=== PATIENT | male | born 1985 | race Caucasian/White ===

== ENCOUNTER 2018-06-26 18:43 | Emergency (ER) | payer OTHER, MEDICAID, SELFPAY ==
[2018-06-26 18:50] VITALS: BP 147/96; PULSE 99; RESP 18; TEMP 36.4; O2SAT 100; BMI 29.5
--- NOTE | 2018-06-26 19:06 | DI.CT.S_ITS ---
PROCEDURE: CT ABDOMEN PELVIS W CON INDICATIONS: severe RLQ pain, rebound, nausea, vomiting, and diaphoresis. TECHNIQUE: After the administration of intravenous contrast, 5 mm thick sections acquired from the diaphragms to the symphysis. 5 mm thick coronal and sagittal reformats were performed. For radiation dose reduction, the following was used: automated exposure control, adjustment of mA and/or kV according to patient size. COMPARISON: None. FINDINGS: Image quality: There is motion artifact limiting evaluation. ABDOMEN: Lung bases: Lung bases are clear. Heart size is normal. Solid organs: Limited evaluation of the liver demonstrates no definite mass lesions. Gallbladder is nondistended. Biliary system is non-dilated. Pancreas enhances normally. Spleen is normal in size and enhancement. No adrenal nodules. There is a small urinary stone in the bladder at the ureterovesical junction measuring 3-4 mm. There is minimal right hydroureteronephrosis. There is mild asymmetrically delayed enhancement of the right kidney. A possible punctate nonobstructing stone is also noted in the right kidney. Peritoneum and bowel: Stomach and small bowel loops are normal in caliber and wall thickness. No evidence of appendicitis. There is mild segmental wall thickening in the sigmoid colon compatible with a mild colitis or nondistention. No free fluid or air. Nodes and vessels: No retroperitoneal or mesenteric adenopathy. Aorta and inferior vena cava are normal in caliber. Miscellaneous: No ventral hernias. PELVIS: Genitourinary: Bladder wall thickness is normal. Miscellaneous: No inguinal hernias or adenopathy. Bones: No suspicious bony lesions. No vertebral body compression fractures. IMPRESSION: 1. Small urinary stone in the bladder at the UVJ compatible with a recently passed stone. There is associated minimal right hydroureteronephrosis and slightly delayed right renal enhancement. 2. No evidence of appendicitis. 3. Mild segmental wall thickening in the sigmoid colon may represent a mild colitis or nondistention. Dictated by: Jonathan Avila M.D. on 06/26/2018 at 19:40 Approved by: Jonathan Avila M.D. on 06/26/2018 at 19:45
--- NOTE | 2018-06-26 19:20 | ED.ABDPAIN ---
HPI - Abdominal Pain General Chief Complaint: Abdominal Pain Stated Complaint: lower right side abdominal pain Time Seen by Provider: 06/26/18 18:51 Source: patient and family Mode of arrival: ambulatory Limitations: no limitations History of Present Illness HPI narrative: 33-year-old daily smoker presents with sudden-onset severe right lower quadrant pain over the course of the day. The patient states he has had a few episodes of nausea and vomiting. His pain has minimal provocation or palliation and he denies any radiation. He has had no fever or chills. He denies any dysuria, frequency or urgency. He denies any trouble with bowel movements. He denies any history of same MD complaint: abdominal pain Onset (ago): hour(s) Pain Consistency: constant Location: RLQ Severity: moderate Quality: stabbing and sharp Radiation: none Migration to: no migration Relieving factors: nothing Exacerbating factors: nothing Associated symptoms: nausea Related Data Previous Rx's Medication Instructions Recorded hydrocodone-acetaminophen 1 tab PO Q4-6H PRN #14 tab 06/26/18 ketorolac 10 mg PO Q6H PRN #14 tab 06/26/18 ondansetron 4 mg PO TID-QID PRN #10 tab 06/26/18 Review of Systems Review of Systems All systems reviewed & are unremarkable except as noted in HPI and below Constitutional Denies chills, Denies fever(s), Denies lethargy and Denies weakness Eyes Denies change in vision, Denies eye discharge, Denies irritation and Denies loss of vision ENT Ears, Nose, Mouth, and Throat: Denies change in voice, Denies neck pain and Denies sore throat Cardiovascular Denies chest pain, Denies irregular heart rhythm, Denies lightheadedness, Denies palpitations, Denies dyspnea, Denies dyspnea on exertion and Denies orthopnea Respiratory Denies cough, Denies dyspnea, Denies dyspnea on exertion and Denies wheezing Gastrointestinal Gastrointestinal: Reports abdominal pain, Denies change in bowel habits, Denies diarrhea, Denies nausea and Denies vomiting Genitourinary Denies hematuria, Denies flank pain, Denies urinary incontinence and Denies urinary urgency Musculoskeletal Denies neck pain Integumentary/Breasts Denies pruritus, Denies erythema, Denies rash and Denies wounds Neurologic Denies confusion, Denies loss of vision and Denies weakness Psychiatric Denies anxiety, Denies confusion, Denies depression, Denies homicidal ideation and Denies suicidal ideation Endocrine Denies palpitations Hematologic/Lymphatic Denies easy bruising Allergic/Immunologic Denies wheezing [facility] Social History Smoking Status: Current every day smoker Exam Narrative Exam Narrative: 33-year-old male obviously in significant pain, clutching his right lower abdomen Initial Vital Signs Initial Vital Signs: Vital Signs Temperature 97.5 F L 06/26/18 18:50 Pulse Rate 99 H 06/26/18 18:50 Respiratory Rate 18 06/26/18 18:50 Blood Pressure 147/96 H 06/26/18 18:50 Pulse Oximetry 100 06/26/18 18:50 Const General: cooperative, well developed and acute distress Nutritional Appearance: well nourished Orientation: alert, awake, oriented x3 and not confused HENMT Head: normal to inspection Ears: hearing grossly normal bilaterally Nose: external nose normal Mouth: oral mucosae normal Eyes General: appearance normal, both eyes and all related structures Eyelids: eyelids normal Conjunctivae: conjunctivae normal Sclera: sclerae normal Pupils: PERRL EOM: EOM intact bilaterally Neck Neck: normal visual inspection, trachea midline, No lymphadenopathy, No midline deformity and No JVD Lymphatic: No lymphedema Resp Effort & Inspection: normal respiratory effort, able to speak in complete sentences, no respiratory distress and no use of accessory muscles Auscultation: clear to auscultation bilaterally, no rales, no rhonchi and no wheezes Cardio Rate: regular rate Rhythm: regular rhythm Heart Sounds: no click, no gallops, no murmurs and no rubs Pulses: normal peripheral pulses GI Inspection: non-distended Palpation: soft, no hepatosplenomegaly, No guarding, No pulsatile mass and tender Auscultation: normal bowel sounds Meatus: meatus normal Scrotum: scrotum normal Testes: normal Back/Spine/Pelvis Back: No CVA tenderness Cervical Spine: cervical ROM normal and No pain with cervical ROM Thoracic/Lumbar Spine: thoracic and lumbar spine normal to inspection Skin General: no rashes or lesions noted, No jaundice and No petechiae Neuro General: alert, awake and oriented x3 Course Orders Ordered: ED Orders 06/26/18 19:00 Complete Blood Count AUTO DIFF Stat Comprehensive Metabolic Panel Stat Lipase Stat 06/26/18 19:06 CT abdomen pelvis w con Stat 06/26/18 20:03 Kidney Stone Analysis [Stone Analysis] Stat Discontinued Medications Hydromorphone HCl (Dilaudid) 1 mg IV Q15M MAGGI Stop: 06/26/18 19:31 Last Admin: 06/26/18 19:25 Dose: 1 mg Sodium Chloride (Normal Saline 0.9%) 1,000 mls @ 1,000 mls/hr IV BOLUS ONE Stop: 06/26/18 20:04 Last Infusion: 06/26/18 20:10 Dose: 0 mls/hr Admin: 06/26/18 19:25 Dose: 1,000 mls/hr Ketorolac Tromethamine (Toradol) 15 mg IV NOW ONE Stop: 06/26/18 19:23 Last Admin: 06/26/18 19:32 Dose: 15 mg Ondansetron HCl (Zofran) 4 mg IV NOW ONE Stop: 06/26/18 19:06 Last Admin: 06/26/18 19:25 Dose: 4 mg Reevaluation(s) Reevaluation #1: Patient with near complete resolution of symptoms after above-stated therapies. When he produced a urine sample there was very clearly a kidney stone noted which has been obtained and sent to the lab for analysis Vital Signs - 8 hr 06/26/18 18:50 06/26/18 19:51 06/26/18 20:11 Temperature 97.5 F L Pulse Rate 99 H 91 H 87 Respiratory Rate 18 20 21 Blood Pressure 147/96 H 139/87 Blood Pressure [Left Arm] 142/82 H Pulse Oximetry 100 100 100 MDM - Abdominal Pain Differential Diagnosis Differential diagnosis: Likely abdominal pain, acute appendicitis, calculus of kidney and constipation Medical Records Attestation: I reviewed the patient's medical records. Lab Data Attestation: I reviewed the patient's lab results. Result diagrams: 06/26/18 19:00 06/26/18 19:00 Lab Results 06/26/18 06/26/18 Range/Units 19:00 19:00 WBC 14.1 H (4.5-11.0) X10^3/uL RBC 5.17 (4.5-5.9) X10^6/uL Hgb 15.3 (13.5-17.5) g/dL Hct 45.0 (41-53) % MCV 87.1 (80-100) fL MCH 29.6 (26-34) PG MCHC 34.0 (30-36) % RDW 13.0 (11.6-14.8) % Plt Count 361 (150-400) X10^3/uL Neut % (Auto) 49.5 L (50-75) % Lymph % (Auto) 39.3 (25-40) % Hart % (Auto) 7.4 (3-14) % Eos % (Auto) 3.1 (2-4) % Baso % (Auto) 0.7 (0-2) % Neut # (Auto) 7000 H (0451-6011) /uL Sodium 141 (137-145) mmol/L Potassium 3.5 (3.4-5.1) mmol/L Chloride 102 (98-107) mmol/L Carbon Dioxide 26 (22-32) mmol/L BUN 14 (9-20) mg/dL Creatinine 0.90 (0.66-1.25) mg/dL Estimated GFR > 60.0 (>60) mL/min BUN/Creatinine Ratio 15.6 (6-22) Glucose 124 H (70-100) mg/dL Calcium 9.7 (8.4-10.2) mg/dL Total Bilirubin 0.3 (0.2-1.3) mg/dL AST 28 (17-59) IU/L ALT 52 (21-72) IU/L Alkaline Phosphatase 84 (38-126) U/L Total Protein 8.1 (6.3-8.2) g/dL Albumin 4.8 (3.5-5.0) g/dL Globulin 3.3 (1.7-4.1) g/dL Albumin/Globulin Ratio 1.5 (1.0-2.8) Lipase 113 (23-300) U/L Point of care testing: Urine Dip Bedside Urine Glucose Negative Bedside Urine Bilirubin - Negative Bedside Urine Ketone - Negative Urine Specific [place] 1.020 Bedside Urine Occult Blood +/- Bedside Urine pH 6.5 Bedside Urine Protein - Negative Bedside Urine Urobilinogen - Negative Bedside Urine Nitrite - Negative Bedside Urine Leukocytes - Negative Esterase Imaging Data CT scan - abdomen: Radiologist's impression: [address] [address] [address] Scan Report Signed Patient: Sandoval Mixon [facility]#: [id number] : 1985Acct:[id number] Age/Sex: 33 / MDate of Service: 06/26/18 Loc: ED Accession Number: [id number] Procedure: CT abdomen pelvis w con Ordering Provider: Jose Raul Urias D.O. PROCEDURE: CT ABDOMEN PELVIS W CON INDICATIONS: severe RLQ pain, rebound, nausea, vomiting, and diaphoresis. TECHNIQUE: After the administration of intravenous contrast, 5 mm thick sections acquired from the diaphragms to the symphysis. 5 mm thick coronal and sagittal reformats were performed. For radiation dose reduction, the following was used: automated exposure control, adjustment of mA and/or kV according to patient size. COMPARISON: None. FINDINGS: Image quality: There is motion artifact limiting evaluation. ABDOMEN: Lung bases: Lung bases are clear. Heart size is normal. Solid organs: Limited evaluation of the liver demonstrates no definite mass lesions. Gallbladder is nondistended. Biliary system is non-dilated. Pancreas enhances normally. Spleen is normal in size and enhancement. No adrenal nodules. There is a small urinary stone in the bladder at the ureterovesical junction measuring 3-4 mm. There is minimal right hydroureteronephrosis. There is mild asymmetrically delayed enhancement of the right kidney. A possible punctate nonobstructing stone is also noted in the right kidney. Peritoneum and bowel: Stomach and small bowel loops are normal in caliber and wall thickness. No evidence of appendicitis. There is mild segmental wall thickening in the sigmoid colon compatible with a mild colitis or nondistention. No free fluid or air. Nodes and vessels: No retroperitoneal or mesenteric adenopathy. Aorta and inferior vena cava are normal in caliber. Miscellaneous: No ventral hernias. PELVIS: Genitourinary: Bladder wall thickness is normal. Miscellaneous: No inguinal hernias or adenopathy. Bones: No suspicious bony lesions. No vertebral body compression fractures. IMPRESSION: 1. Small urinary stone in the bladder at the UVJ compatible with a recently passed stone. There is associated minimal right hydroureteronephrosis and slightly delayed right renal enhancement. 2. No evidence of appendicitis. 3. Mild segmental wall thickening in the sigmoid colon may represent a mild colitis or nondistention. Dictated by: Jonathan Avila M.D. on 06/26/2018 at 19:40 Approved by: Jonathan Avila M.D. on 06/26/2018 at 19:45 [facility] Narrative Medical decision making narrative: 33-year-old male presents with severe right lower quadrant pain in the absence of fever, chills or provocation. CT notes a stone at the right UVJ which has been obtained and sent for analysis. Labs are unremarkable. No infectious findings in the urine. Appendicitis, bowel obstruction and diverticulitis considered but given CT findings are thought much less likely. Discharge Plan Departure Patient Disposition: Home Clinical Impression: Kidney stones Discharge Date/Time: 06/26/18 20:13 Interventions: ED Discharge Assessment Last Done: 06/26/18 20:11 Instructions: DI for Kidney Stones Activity Restrictions/Additional Instructions: *You have been diagnosed with [ passed kidney stone ] *What to do: *Take medications as directed *Follow up with your primary care provider in 2-3 days, call for an appointment. Let them know you were seen in the Emergency Department and that we ask that you be seen in follow up. Additionally I have provided contact information for Urology at [facility] *Return to ER if you should have any new, worsening or concerning symptoms, such as [ worsening pain, fever, shaking chills, other bothersome symptoms] Prescriptions: New hydrocodone-acetaminophen 5-325 mg tablet 1 tab PO Q4-6H PRN (Reason: pain) Qty: 14 RF: 0 ketorolac 10 mg tablet 10 mg PO Q6H PRN (Reason: pain) Qty: 14 RF: 0 ondansetron 4 mg tablet,disintegrating 4 mg PO TID-QID PRN (Reason: nausea and vomiting) Qty: 10 RF: 0 Referrals: Kevin Garber MD [Non-Staff] -
[2018-06-26 19:25] LABS: Add Manual Diff / Slide Review NO; Basophils Percent Auto 0.7 % (0-2); Eosinophils Percent Auto 3.1 % (2-4); Hemoglobin 15.3 g/dL (13.5-17.5); Lymphocytes Percent Auto 39.3 % (25-40); Mean Corpuscular Hemoglobin 29.6 PG (26-34); Mean Corpuscular Volume 87.1 fL (80-100); Monocytes Percent Auto 7.4 % (3-14); Neutrophils Absolute Auto 7000 /uL (3000-5900); Neutrophils Percent Auto 49.5 % (50-75); Platelet Count 361 X10^3/uL (150-400); Red Blood Cell Count 5.17 X10^6/uL (4.5-5.9); White Blood Cell Count 14.1 X10^3/uL (4.5-11.0)
[2018-06-26] MEDS: ONDANSETRON 4 MG/2 ML INJ IV (19:25)
[2018-06-26] MEDS: SODIUM CHLORIDE 0.9% 1,000 ML 1000 ML IV (19:25)
[2018-06-26] MEDS: HYDROMORPHONE 1 MG INJ IV (19:25)
[2018-06-26 19:30] LABS: Alanine Aminotransferase 52 IU/L (21-72); Albumin 4.8 g/dL (3.5-5.0); Albumin Globulin Ratio 1.5 (1.0-2.8); Alkaline Phosphatase 84 U/L (38-126); Aspartate Aminotransferase 28 IU/L (17-59); BUN Creatinine Ratio 15.6 (6-22); Bilirubin Total 0.3 mg/dL (0.2-1.3); Blood Urea Nitrogen 14 mg/dL (9-20); Calcium 9.7 mg/dL (8.4-10.2); Carbon Dioxide 26 mmol/L (22-32); Chloride 102 mmol/L (98-107); Estimated Glomerular Filt Rate > 60.0 mL/min (>60); Globulin 3.3 g/dL (1.7-4.1); Glucose 124 mg/dL (70-100); HEMOLYSIS < 15 (0-50); Lipase 113 U/L (23-300); Potassium 3.5 mmol/L (3.4-5.1); Sodium 141 mmol/L (137-145); Total Protein 8.1 g/dL (6.3-8.2)
[2018-06-26] MEDS: KETOROLAC 60 MG/2 ML VIAL 15 MG IV (19:32)
[2018-06-26 19:51] VITALS: BP 142/82; PULSE 91; RESP 20; O2SAT 100
--- NOTE | 2018-06-26 19:53 | PC.NURSE ---
Pt provided a urinal, voided 200ml. small dark 2-3mm stone strained from urine.
[2018-06-26 20:11] VITALS: BP 139/87; PULSE 87; RESP 21; O2SAT 100
--- NOTE | 2018-06-26 21:41 | ED_ITS ---
HPI - Abdominal Pain General Chief Complaint: Abdominal Pain Stated Complaint: lower right side abdominal pain Time Seen by Provider: 06/26/18 18:51 Source: patient and family Mode of arrival: ambulatory Limitations: no limitations History of Present Illness HPI narrative: 33-year-old daily smoker presents with sudden-onset severe right lower quadrant pain over the course of the day. The patient states he has had a few episodes of nausea and vomiting. His pain has minimal provocation or palliation and he denies any radiation. He has had no fever or chills. He denies any dysuria, frequency or urgency. He denies any trouble with bowel movements. He denies any history of same MD complaint: abdominal pain Onset (ago): hour(s) Pain Consistency: constant Location: RLQ Severity: moderate Quality: stabbing and sharp Radiation: none Migration to: no migration Relieving factors: nothing Exacerbating factors: nothing Associated symptoms: nausea Related Data Previous Rx's Medication Instructions Recorded hydrocodone-acetaminophen 1 tab PO Q4-6H PRN #14 tab 06/26/18 ketorolac 10 mg PO Q6H PRN #14 tab 06/26/18 ondansetron 4 mg PO TID-QID PRN #10 tab 06/26/18 Review of Systems Review of Systems All systems reviewed & are unremarkable except as noted in HPI and below Constitutional Denies chills, Denies fever(s), Denies lethargy and Denies weakness Eyes Denies change in vision, Denies eye discharge, Denies irritation and Denies loss of vision ENT Ears, Nose, Mouth, and Throat: Denies change in voice, Denies neck pain and Denies sore throat Cardiovascular Denies chest pain, Denies irregular heart rhythm, Denies lightheadedness, Denies palpitations, Denies dyspnea, Denies dyspnea on exertion and Denies orthopnea Respiratory Denies cough, Denies dyspnea, Denies dyspnea on exertion and Denies wheezing Gastrointestinal Gastrointestinal: Reports abdominal pain, Denies change in bowel habits, Denies diarrhea, Denies nausea and Denies vomiting Genitourinary Denies hematuria, Denies flank pain, Denies urinary incontinence and Denies urinary urgency Musculoskeletal Denies neck pain Integumentary/Breasts Denies pruritus, Denies erythema, Denies rash and Denies wounds Neurologic Denies confusion, Denies loss of vision and Denies weakness Psychiatric Denies anxiety, Denies confusion, Denies depression, Denies homicidal ideation and Denies suicidal ideation Endocrine Denies palpitations Hematologic/Lymphatic Denies easy bruising Allergic/Immunologic Denies wheezing [facility] Social History Smoking Status: Current every day smoker Exam Narrative Exam Narrative: 33-year-old male obviously in significant pain, clutching his right lower abdomen Initial Vital Signs Initial Vital Signs: Vital Signs Temperature 97.5 F L 06/26/18 18:50 Pulse Rate 99 H 06/26/18 18:50 Respiratory Rate 18 06/26/18 18:50 Blood Pressure 147/96 H 06/26/18 18:50 Pulse Oximetry 100 06/26/18 18:50 Const General: cooperative, well developed and acute distress Nutritional Appearance: well nourished Orientation: alert, awake, oriented x3 and not confused HENMT Head: normal to inspection Ears: hearing grossly normal bilaterally Nose: external nose normal Mouth: oral mucosae normal Eyes General: appearance normal, both eyes and all related structures Eyelids: eyelids normal Conjunctivae: conjunctivae normal Sclera: sclerae normal Pupils: PERRL EOM: EOM intact bilaterally Neck Neck: normal visual inspection, trachea midline, No lymphadenopathy, No midline deformity and No JVD Lymphatic: No lymphedema Resp Effort & Inspection: normal respiratory effort, able to speak in complete sentences, no respiratory distress and no use of accessory muscles Auscultation: clear to auscultation bilaterally, no rales, no rhonchi and no wheezes Cardio Rate: regular rate Rhythm: regular rhythm Heart Sounds: no click, no gallops, no murmurs and no rubs Pulses: normal peripheral pulses GI Inspection: non-distended Palpation: soft, no hepatosplenomegaly, No guarding, No pulsatile mass and tender Auscultation: normal bowel sounds Meatus: meatus normal Scrotum: scrotum normal Testes: normal Back/Spine/Pelvis Back: No CVA tenderness Cervical Spine: cervical ROM normal and No pain with cervical ROM Thoracic/Lumbar Spine: thoracic and lumbar spine normal to inspection Skin General: no rashes or lesions noted, No jaundice and No petechiae Neuro General: alert, awake and oriented x3 Course Orders Ordered: ED Orders 06/26/18 19:00 Complete Blood Count AUTO DIFF Stat Comprehensive Metabolic Panel Stat Lipase Stat 06/26/18 19:06 CT abdomen pelvis w con Stat 06/26/18 20:03 Kidney Stone Analysis [Stone Analysis] Stat Discontinued Medications Hydromorphone HCl (Dilaudid) 1 mg IV Q15M MAGGI Stop: 06/26/18 19:31 Last Admin: 06/26/18 19:25 Dose: 1 mg Sodium Chloride (Normal Saline 0.9%) 1,000 mls @ 1,000 mls/hr IV BOLUS ONE Stop: 06/26/18 20:04 Last Infusion: 06/26/18 20:10 Dose: 0 mls/hr Admin: 06/26/18 19:25 Dose: 1,000 mls/hr Ketorolac Tromethamine (Toradol) 15 mg IV NOW ONE Stop: 06/26/18 19:23 Last Admin: 06/26/18 19:32 Dose: 15 mg Ondansetron HCl (Zofran) 4 mg IV NOW ONE Stop: 06/26/18 19:06 Last Admin: 06/26/18 19:25 Dose: 4 mg Reevaluation(s) Reevaluation #1: Patient with near complete resolution of symptoms after above- stated therapies. When he produced a urine sample there was very clearly a kidney stone noted which has been obtained and sent to the lab for analysis Vital Signs - 8 hr 06/26/18 18:50 06/26/18 19:51 06/26/18 20:11 Temperature 97.5 F L Pulse Rate 99 H 91 H 87 Respiratory Rate 18 20 21 Blood Pressure 147/96 H 139/87 Blood Pressure [Left Arm] 142/82 H Pulse Oximetry 100 100 100 MDM - Abdominal Pain Differential Diagnosis Differential diagnosis: Likely abdominal pain, acute appendicitis, calculus of kidney and constipation Medical Records Attestation: I reviewed the patient's medical records. Lab Data Attestation: I reviewed the patient's lab results. Result diagrams: 06/26/18 19:00 06/26/18 19:00 Lab Results 06/26/18 06/26/18 Range/Units 19:00 19:00 WBC 14.1 H (4.5-11.0) X10^3/uL RBC 5.17 (4.5-5.9) X10^6/uL Hgb 15.3 (13.5-17.5) g/dL Hct 45.0 (41-53) % MCV 87.1 (80-100) fL MCH 29.6 (26-34) PG MCHC 34.0 (30-36) % RDW 13.0 (11.6-14.8) % Plt Count 361 (150-400) X10^3/uL Neut % (Auto) 49.5 L (50-75) % Lymph % (Auto) 39.3 (25-40) % Person % (Auto) 7.4 (3-14) % Eos % (Auto) 3.1 (2-4) % Baso % (Auto) 0.7 (0-2) % Neut # (Auto) 7000 H (9287-8758) /uL Sodium 141 (137-145) mmol/L Potassium 3.5 (3.4-5.1) mmol/L Chloride 102 (98-107) mmol/L Carbon Dioxide 26 (22-32) mmol/L BUN 14 (9-20) mg/dL Creatinine 0.90 (0.66-1.25) mg/dL Estimated GFR > 60.0 (>60) mL/min BUN/Creatinine Ratio 15.6 (6-22) Glucose 124 H (70-100) mg/dL Calcium 9.7 (8.4-10.2) mg/dL Total Bilirubin 0.3 (0.2-1.3) mg/dL AST 28 (17-59) IU/L ALT 52 (21-72) IU/L Alkaline Phosphatase 84 (38-126) U/L Total Protein 8.1 (6.3-8.2) g/dL Albumin 4.8 (3.5-5.0) g/dL Globulin 3.3 (1.7-4.1) g/dL Albumin/Globulin Ratio 1.5 (1.0-2.8) Lipase 113 (23-300) U/L Point of care testing: Urine Dip Bedside Urine Glucose Negative Bedside Urine Bilirubin - Negative Bedside Urine Ketone - Negative Urine Specific [place] 1.020 Bedside Urine Occult Blood +/- Bedside Urine pH 6.5 Bedside Urine Protein - Negative Bedside Urine Urobilinogen - Negative Bedside Urine Nitrite - Negative Bedside Urine Leukocytes - Negative Esterase Imaging Data CT scan - abdomen: Radiologist's impression: [address] [address] [address] Scan Report Signed Patient: Sandoval Mixon [facility]#: [id number] : 1985Acct:[id number] Age/Sex: 33 / MDate of Service: 06/26/18 Loc: ED Accession Number: [id number] Procedure: CT abdomen pelvis w con Ordering Provider: Jose Raul Urias D.O. PROCEDURE: CT ABDOMEN PELVIS W CON INDICATIONS: severe RLQ pain, rebound, nausea, vomiting, and diaphoresis. TECHNIQUE: After the administration of intravenous contrast, 5 mm thick sections acquired from the diaphragms to the symphysis. 5 mm thick coronal and sagittal reformats were performed. For radiation dose reduction, the following was used: automated exposure control, adjustment of mA and/or kV according to patient size. COMPARISON: None. FINDINGS: Image quality: There is motion artifact limiting evaluation. ABDOMEN: Lung bases: Lung bases are clear. Heart size is normal. Solid organs: Limited evaluation of the liver demonstrates no definite mass lesions. Gallbladder is nondistended. Biliary system is non-dilated. Pancreas enhances normally. Spleen is normal in size and enhancement. No adrenal nodules. There is a small urinary stone in the bladder at the ureterovesical junction measuring 3-4 mm. There is minimal right hydroureteronephrosis. There is mild asymmetrically delayed enhancement of the right kidney. A possible punctate nonobstructing stone is also noted in the right kidney. Peritoneum and bowel: Stomach and small bowel loops are normal in caliber and wall thickness. No evidence of appendicitis. There is mild segmental wall thickening in the sigmoid colon compatible with a mild colitis or nondistention. No free fluid or air. Nodes and vessels: No retroperitoneal or mesenteric adenopathy. Aorta and inferior vena cava are normal in caliber. Miscellaneous: No ventral hernias. PELVIS: Genitourinary: Bladder wall thickness is normal. Miscellaneous: No inguinal hernias or adenopathy. Bones: No suspicious bony lesions. No vertebral body compression fractures. IMPRESSION: 1. Small urinary stone in the bladder at the UVJ compatible with a recently passed stone. There is associated minimal right hydroureteronephrosis and slightly delayed right renal enhancement. 2. No evidence of appendicitis. 3. Mild segmental wall thickening in the sigmoid colon may represent a mild colitis or nondistention. Dictated by: Jonathan Avila M.D. on 06/26/2018 at 19:40 Approved by: Jonathan Avila M.D. on 06/26/2018 at 19:45 [facility] Narrative Medical decision making narrative: 33-year-old male presents with severe right lower quadrant pain in the absence of fever, chills or provocation. CT notes a stone at the right UVJ which has been obtained and sent for analysis. Labs are unremarkable. No infectious findings in the urine. Appendicitis, bowel obstruction and diverticulitis considered but given CT findings are thought much less likely. Discharge Plan Departure Patient Disposition: Home Clinical Impression: Kidney stones Discharge Date/Time: 06/26/18 20:13 Interventions: ED Discharge Assessment Last Done: 06/26/18 20:11 Instructions: DI for Kidney Stones Activity Restrictions/Additional Instructions: *You have been diagnosed with [ passed kidney stone ] *What to do: *Take medications as directed *Follow up with your primary care provider in 2-3 days, call for an appointment. Let them know you were seen in the Emergency Department and that we ask that you be seen in follow up. Additionally I have provided contact information for Urology at [facility] *Return to ER if you should have any new, worsening or concerning symptoms , such as [ worsening pain, fever, shaking chills, other bothersome symptoms] Prescriptions: New hydrocodone-acetaminophen 5-325 mg tablet 1 tab PO Q4-6H PRN (Reason: pain) Qty: 14 RF: 0 ketorolac 10 mg tablet 10 mg PO Q6H PRN (Reason: pain) Qty: 14 RF: 0 ondansetron 4 mg tablet,disintegrating 4 mg PO TID-QID PRN (Reason: nausea and vomiting) Qty: 10 RF: 0 Referrals: Kevin Garber MD [Non-Staff] -
[2018-06-29 14:34] LABS: Specimen Source Kidney
== END 2018-06-26 20:13 | disposition home or self-care (01) ==
PROVIDERS: Emergency Provider Emergency Medicine; Family Provider Family Medicine; PCP Family Medicine
DX: N20.0 Calculus of kidney (principal)
CPT/HCPCS: 36591; 51798; 74177; 80053; 81003; 82370; 83690; 85025; 96361; 96374; 96375; 99283; 99285; J1170; J1885; J2405; Q9967

== ENCOUNTER → 2023-12-20 10:01 | Outpatient (CLI) | payer SELFPAY ==
--- NOTE | 2023-12-20 10:08 | DI.RAD.S_ITS ---
PROCEDURE: XR HAND LT MIN 3V INDICATIONS: Left wrist injury, pain, thumb injury/pain TECHNIQUE: 3 views of the hand(s) acquired. COMPARISON: [facility], CR, XR WRIST LT MIN 3V, 12/20/2023, 10:31. FINDINGS: Bones: No fractures or dislocations. Carpal bones are normally aligned. No suspicious bony lesions. Soft tissues: No suspicious soft tissue calcifications. IMPRESSION: No acute bony abnormality. Dictated by: Anisha Parra MD, PhD on 12/20/2023 at 11:15 Approved by: Anisha Parra MD, PhD on 12/20/2023 at 11:16
--- NOTE | 2023-12-20 10:08 | DI.RAD.S_ITS ---
PROCEDURE: XR WRIST LT MIN 3V INDICATIONS: LEFT WRIST INJURY, PAIN TECHNIQUE: 4 views of the wrist were acquired. COMPARISON: None. FINDINGS: Bones: No fractures or dislocations. No suspicious bony lesions. Soft tissues: No suspicious soft tissue calcifications. IMPRESSION: No acute bony abnormality. Dictated by: Anisha Parra MD, PhD on 12/20/2023 at 11:12 Approved by: Anisha Parra MD, PhD on 12/20/2023 at 11:15
== END ==
PROVIDERS: Family Provider Family Medicine; PCP Family Medicine; Referring Provider Physician Assistant Surgical; Visit Provider Physician Assistant Surgical
DX: M79.645 Pain in left finger(s) (principal); M79.642 Pain in left hand
CPT/HCPCS: 73110; 73130